=== PATIENT | female | born 2000 | race Caucasian/White ===

== ENCOUNTER 2019-11-14 10:50 | Observation (INO) | payer OTHER ==
[2019-11-14 11:45] LABS: Absolute Neutrophil Ct (ANC) 6.81 (1.4-6.9); BASOPHIL % 0.2 % (0.0-0.4); Basophil (Absolute #) 0.02 (0-0.4); Lymphocyte (Absolute #) 2.04 (1.0-4.6); Lymphocytes % 20.2 % (24.0-44.0); Mean Cell Volume 90.6 fl (78-100); Mean Corpuscular Hemoglobin 29.2 pg (26-32); Mean Corpuscular Hgb Concent. 32.3 g/dl (32-36); Mean Platelet Volume 10.6 fl (7.5-11.0); Monocyte (Absolute #) 1.02 (0.0-1.3); Monocytes % 10.1 % (0.0-12.0); Neutrophil % 67.5 % (36.0-66.0); Platelet Count 185 K/mm3 (150-450); Red Blood Count 3.42 M/mm3 (4.1-5.4); Red Cell Distribution Width 12.7 % (11.5-14.0); White Blood Count 10.1 K/mm3 (4.0-10.5)
[2019-11-14 11:57] LABS: ALBUMIN 3.2 g/dL (3.5-5.0); ALKALINE PHOSPHATASE 114 U/L (38-126); ANION GAP 10.3 MEQ/L (5-15); BLOOD UREA NITROGEN 6 mg/dL (7-17); CHLORIDE 106 mmol/L (98-107); Calcium 8.9 mg/dL (8.4-10.2); Carbon Dioxide 24 mmol/L (22-30); Creatinine 1 0.55 mg/dL (0.52-1.04); Glucose 87 mg/dL (74-106); SGOT/AST 38 U/L (14-36); SGPT/ALT 13 U/L (0-35); SODIUM 137 mmol/L (137-145); Total Protein 6.4 g/dL (6.3-8.2); Uric Acid 4.3 mg/dL (2.6-6.0)
[2019-11-14 12:27] VITALS: BP 100/55; PULSE 91
[2019-11-14 13:08] LABS: Amphetamine,Urine NEGATIVE (NEGATIVE); Barbiturate,Urine NEGATIVE (NEGATIVE); Benzodiazepine,Urine NEGATIVE (NEGATIVE); Cocaine,Urine NEGATIVE (NEGATIVE); Methadone,Urine NEGATIVE (NEGATIVE); Opiate,Urine NEGATIVE (NEGATIVE); PCP,Urine NEGATIVE (NEGATIVE); THC,Urine NEGATIVE (NEGATIVE)
[2019-11-14 13:23] LABS: Appearance CLOUDY (CLEAR); Bilirubin NEGATIVE (NEGATIVE); Blood NEGATIVE Ery/ul (0-5); Epithelial Cells RARE /HPF (FEW); Glucose NEGATIVE (NEGATIVE); Ketones NEGATIVE (NEGATIVE); Leukocyte Esterase NEGATIVE (NEGATIVE); Mucus SLIGHT /HPF (NEGATIVE); Nitrite NEGATIVE (NEGATIVE); Protein,Urine Dip NEGATIVE (Negative); Specific Gravity 1.014 (1.005-1.025); Urobilinogen NEGATIVE mg/dL (0-1)
--- NOTE | 2019-11-14 14:04 | XRAY ---
Indication: Size less than dates. Two-dimensional OB ultrasound performed. Comparison: None There is a single viable intrauterine currently in cephalic presentation. Normal four-chamber heart with heart rate 130 bpm. Normal three-vessel cord and cord insertion. Visualized head, spine, stomach, kidneys, and bladder are unremarkable. Anterior placenta without abruption/previa. BPD measures 8.28 cm corresponding to 33 weeks 2 days. HC measures 31.00 cm corresponding to 34 weeks 4 days. AC measures 28.83 cm corresponding to 32 weeks 6 days. FL measures 6.53 cm corresponding to 33 weeks 5 days. Estimated weight 4 lbs. 12 oz., +/-11 ounces. Approximately 34 percentile. JOSEPH is 12.8 cm. Impression: Single viable intrauterine with mean gestational age 33 weeks 4 days. Expected date confinement is December 29, 2019. No acute findings.
== END 2019-11-14 13:55 | disposition home or self-care (01) ==
LOC: OB 10:50
PROVIDERS: ADMIT Family Medicine; ATTEND Family Medicine
DX: Z34.83 Encounter for supervision of other normal pregnancy, third trimester (principal)
CPT/HCPCS: 36415; 76805; 80053; 80307; 81001; 84550; 85025; 86701; 86702; 87340; 87389; G0378

== ENCOUNTER 2019-12-02 15:01 | Observation (INO) | payer OTHER ==
[2019-12-02 15:27] LABS: Appearance SLIGHTLY CLOUDY (CLEAR); Bilirubin NEGATIVE (NEGATIVE); Blood NEGATIVE Ery/ul (0-5); Epithelial Cells RARE /HPF (FEW); Glucose NEGATIVE (NEGATIVE); Ketones NEGATIVE (NEGATIVE); Leukocyte Esterase NEGATIVE (NEGATIVE); Mucus SLIGHT /HPF (NEGATIVE); Nitrite NEGATIVE (NEGATIVE); Protein,Urine Dip NEGATIVE (Negative); Specific Gravity 1.017 (1.005-1.025); Urobilinogen NEGATIVE mg/dL (0-1)
[2019-12-02 16:06] LABS: Amphetamine,Urine NEGATIVE (NEGATIVE); Barbiturate,Urine NEGATIVE (NEGATIVE); Benzodiazepine,Urine NEGATIVE (NEGATIVE); Cocaine,Urine NEGATIVE (NEGATIVE); Methadone,Urine NEGATIVE (NEGATIVE); Opiate,Urine NEGATIVE (NEGATIVE); PCP,Urine NEGATIVE (NEGATIVE); THC,Urine NEGATIVE (NEGATIVE)
[2019-12-02] MEDS ORDERED: Lactated Ringers 1,000 ML IV SCH (17:00)
[2019-12-02 19:06] VITALS: BP 110/60; PULSE 89
== END 2019-12-02 19:04 | disposition home or self-care (01) ==
LOC: OB 15:01
PROVIDERS: ADMIT Family Medicine; ATTEND Family Medicine
DX: Z34.83 Encounter for supervision of other normal pregnancy, third trimester (principal)
CPT/HCPCS: 80307; 81001; G0378

== ENCOUNTER 2019-12-09 13:09 | Inpatient (IN) | payer OTHER ==
[2019-12-09 13:56] LABS: Appearance CLOUDY (CLEAR); Bilirubin NEGATIVE (NEGATIVE); Blood NEGATIVE Ery/ul (0-5); Epithelial Cells MODERATE /HPF (FEW); Glucose NEGATIVE (NEGATIVE); Ketones NEGATIVE (NEGATIVE); Leukocyte Esterase MODERATE (NEGATIVE); Mucus SLIGHT /HPF (NEGATIVE); Nitrite NEGATIVE (NEGATIVE); Protein,Urine Dip NEGATIVE (Negative); RBC 0-2 /HPF (0-2); Specific Gravity 1.015 (1.005-1.025); Urobilinogen NEGATIVE mg/dL (0-1)
[2019-12-09] MEDS ORDERED: Lactated Ringers 1,000 ML IV ONE (14:22)
[2019-12-09 14:53] LABS: Amphetamine,Urine NEGATIVE (NEGATIVE); Barbiturate,Urine NEGATIVE (NEGATIVE); Benzodiazepine,Urine NEGATIVE (NEGATIVE); Cocaine,Urine NEGATIVE (NEGATIVE); Methadone,Urine NEGATIVE (NEGATIVE); Opiate,Urine NEGATIVE (NEGATIVE); PCP,Urine NEGATIVE (NEGATIVE); THC,Urine NEGATIVE (NEGATIVE)
[2019-12-09] MEDS ORDERED: SOD CITRATE-CITRIC ACID SOLN PO ONE (16:08)
[2019-12-09] MEDS ORDERED: Reglan 10 MG/2 ML IV SCH (16:15)
[2019-12-09] MEDS ORDERED: Pepcid 20 MG VIAL IV SCH (16:15)
[2019-12-09] MEDS ORDERED: CEFAZOLIN 2 GM-D5W BAG** 2 GM/50 ML ML IV SCH (16:30)
[2019-12-09] MEDS ORDERED: Lactated Ringers 1,000 ML IV SCH (16:30)
[2019-12-09 16:34] LABS: Hemoglobin 9.6 gm/dl (12.0-16.0); INR 1.01 (0.8-3.0); Mean Cell Volume 90.9 fl (78-100); Mean Corpuscular Hemoglobin 29.1 pg (26-32); Mean Platelet Volume 10.6 fl (7.5-11.0); PROTIME 11.4 SECONDS (9.95-12.35); Platelet Count 175 K/mm3 (150-450); Red Cell Distribution Width 13.2 % (11.5-14.0); White Blood Count 13.1 K/mm3 (4.0-10.5)
[2019-12-09 16:37] LABS: PTT 27.7 SECONDS (25.3-37.0)
[2019-12-09] MEDS ORDERED: Pitocin 10 UNITS/ML ONE ×2 (16:47→17:56)
[2019-12-09] MEDS ORDERED: Astramorph-Pf 5 MG/10 ML ONE (16:48)
[2019-12-09 17:01] LABS: BAND 11 % (0.0-2.0); Lymphocytes 18 % (24-44); Metamyelocyte 2 %; Monocyte 4 % (0.0-12.0); Neutrophils 65 % (36.0-66.0); Total Cells Counted 100
[2019-12-09 17:02] LABS: Macrocytosis RARE; Platelet Estimate NORMAL (NORMAL); Polychromasia 1+
[2019-12-09 17:04] LABS: Absolute Neutrophil Ct (ANC) 9.93 (1.4-6.9)
[2019-12-09] MEDS ORDERED: Ephedrine Sulfate 50 MG/ML ONE (17:14)
[2019-12-09 17:22] LABS: ABO TYPING A; RH TYPING NEGATIVE
[2019-12-09 17:23] LABS: Antibody Screen POSITIVE (NEGATIVE)
[2019-12-09] MEDS ORDERED: PHENYLEPHRINE HCL ONE (17:29)
[2019-12-09] MEDS ORDERED: Zofran 4 MG/2 ML VIAL ONE (17:30)
[2019-12-09] MEDS ORDERED: MARCAINE 0.5%-EPI 1:200,000 VL IJ ONE (17:37)
[2019-12-09] MEDS ORDERED: Decadron 4 MG INJ ONE (17:39)
[2019-12-09] MEDS ORDERED: Lactated Ringers 2,000 ML IV ONE (18:08)
[2019-12-09] MEDS ORDERED: DEMEROL 50 MG ONE (18:16)
[2019-12-09 19:39] LABS: Appearance CLEAR (CLEAR); Bilirubin NEGATIVE (NEGATIVE); Blood MODERATE Ery/ul (0-5); Glucose NEGATIVE (NEGATIVE); Ketones SMALL (NEGATIVE); Leukocyte Esterase NEGATIVE (NEGATIVE); Nitrite NEGATIVE (NEGATIVE); Protein,Urine Dip NEGATIVE (Negative); RBC 0-2 /HPF (0-2); Specific Gravity 1.008 (1.005-1.025); Urobilinogen NEGATIVE mg/dL (0-1); WBC 0-2 /HPF (0-5)
[2019-12-09] MEDS ORDERED: MOTRIN 400 MG PO PRN (20:39)
[2019-12-09] MEDS ORDERED: CORTISONE 1% CREAM TP PRN (20:39)
[2019-12-09] MEDS ORDERED: LANSINOH 40 GM TOP PRN (20:39)
[2019-12-09] MEDS ORDERED: TYLENOL EXTRA STRENGTH 500 MG PO PRN (20:39)
[2019-12-09] MEDS ORDERED: Ambien 10 MG PO PRN (20:39)
[2019-12-09] MEDS ORDERED: Rhogam Plus 300 MCG IM ONE (20:39)
[2019-12-09] MEDS ORDERED: Mylicon 80MG PO PRN (20:39)
[2019-12-09] MEDS ORDERED: Narcan 0.4 MG/ML IV PRN (20:41)
[2019-12-09] MEDS ORDERED: CLARITIN 10 MG PO PRN (20:41)
[2019-12-09] MEDS ORDERED: BENADRYL 50 MG/ML IV PRN (20:41)
[2019-12-09] MEDS ORDERED: HOLD NARCOTIC ANALGESICS AND SEDATIVES X24 HR MC PRN (20:41)
[2019-12-09] MEDS ORDERED: Nubain 10 MG/ML IV PRN (20:41)
[2019-12-09] MEDS ORDERED: Zofran 4 MG/2 ML VIAL IV PRN (20:41)
[2019-12-09] MEDS ORDERED: DEMEROL 50 MG IV PRN (20:43)
[2019-12-09] MEDS ORDERED: Phenergan 25 MG INJ IM PRN (20:43)
[2019-12-09] MEDS: Colace 100 MG PO SCH (22:00)
[2019-12-10] MEDS: Dextrose 5%-Lr IV Solution 1000 ML 1,000 ML IV SCH ×2 (02:04→10:08)
[2019-12-10 04:58] LABS: Absolute Neutrophil Ct (ANC) 17.23 (1.4-6.9); BASOPHIL % 0.1 % (0.0-0.4); Basophil (Absolute #) 0.01 (0-0.4); Eosinophil (Absolute #) 0 (0-0.5); Hematocrit 27.3 % (35-47); Lymphocytes % 4.3 % (24.0-44.0); Mean Cell Volume 89.5 fl (78-100); Mean Corpuscular Hemoglobin 29.5 pg (26-32); Mean Platelet Volume 10.9 fl (7.5-11.0); Monocyte (Absolute #) 0.57 (0.0-1.3); Monocytes % 3.1 % (0.0-12.0); Neutrophil % 92.5 % (36.0-66.0); Platelet Count 196 K/mm3 (150-450); Red Blood Count 3.05 M/mm3 (4.1-5.4); Red Cell Distribution Width 12.7 % (11.5-14.0); White Blood Count 18.6 K/mm3 (4.0-10.5)
[2019-12-10 08:51] VITALS: O2SAT 99
--- NOTE | 2019-12-10 09:21 | PCM.DS ---
Discharge Summary Date of Admission: 12/09/19 16:09 Admitting Physician: ELIAS VAZQUEZ Consults: Consults on Case 12/09/19 16:08 Notify Physician OF ADMISSION 12/09/19 20:39 Notify Physician ROUTINE 12/09/19 20:41 Notify Anesthesia Provider PRN Primary Care Provider: ELIAS VAZQUEZ Allergies Allergies No Known Drug Allergies Allergy (Verified 12/09/19 13:25) Hospital Summary - Hospital Course Hospital Course: patient is a 19yo with 2 prior , under the care of Dr Lo and recently switched to Dr Vazquez. arrived at 37 1/7wks ega in active labor, had repeat c/s on 12/08 with no complications. she is tolerating po, pain controlled post-op. baby was transferred to NICU due to respiratory concerns. she plans to breastfeed and has been pumping since delivery - Vitals & Intake/Output Vital Signs: Vital Signs Temperature 97.8 F 12/10/19 08:15 Pulse Rate 86 12/10/19 08:15 Respiratory Rate 18 12/10/19 08:15 Blood Pressure 96/53 12/10/19 08:15 O2 Sat by Pulse Oximetry 99 12/10/19 08:15 Intake & Output: Intake & Output 12/07/19 12/08/19 12/09/19 12/10/19 11:59 11:59 11:59 11:59 Intake Total 2413 Output Total 950 Balance 1463 Weight 70.76 kg - Lab Result Diagrams: 12/10/19 04:55 Lab Results-Last 24 Hrs: Lab Results-Last 24 Hours 12/09/19 12/09/19 12/09/19 Range/Units 13:15 13:15 13:30 WBC (4.0-10.5) K/mm3 RBC (4.1-5.4) M/mm3 Hgb (12.0-16.0) gm/dl Hct (35-47) % MCV (78-100) fl MCH (26-32) pg MCHC (32-36) g/dl RDW (11.5-14.0) % Plt Count (150-450) K/mm3 MPV (7.5-11.0) fl Gran % (36.0-66.0) % Eos # (Auto) (0-0.5) Absolute Lymphs (auto) (1.0-4.6) Absolute Monos (auto) (0.0-1.3) Lymphocytes % (24.0-44.0) % Monocytes % (0.0-12.0) % Eosinophils % (0.00-5.0) % Basophils % (0.0-0.4) % Absolute Granulocytes (1.4-6.9) Segmented Neutrophils (36.0-66.0) % Band Neutrophils (0.0-2.0) % Lymphocytes (Manual) (24-44) % Monocytes (Manual) (0.0-12.0) % Basophils # (0-0.4) Metamyelocytes % Platelet Estimate (NORMAL) RBC Morphology Polychromasia Macrocytosis PT (9.95-12.35) SECONDS INR (0.8-3.0) APTT (25.3-37.0) SECONDS Urine Color YELLOW (YELLOW) Urine Appearance CLOUDY (CLEAR) Urine pH 7.0 (5-6) Ur Specific Lingle 1.015 (1.005-1.025) Urine Protein NEGATIVE (Negative) Urine Ketones NEGATIVE (NEGATIVE) Urine Blood NEGATIVE (0-5) Jeremías/ul Urine Nitrite NEGATIVE (NEGATIVE) Urine Bilirubin NEGATIVE (NEGATIVE) Urine Urobilinogen NEGATIVE (0-1) mg/dL Ur Leukocyte Esterase MODERATE (NEGATIVE) Urine WBC (Auto) 3-5 (0-5) /HPF Urine RBC (Auto) 0-2 (0-2) /HPF U Epithel Cells (Auto) MODERATE (FEW) /HPF Urine Bacteria (Auto) NONE (NEGATIVE) /HPF Urine Mucus (Auto) SLIGHT (NEGATIVE) /HPF Urine Culture Reflexed NO (NO) Urine Glucose NEGATIVE (NEGATIVE) mg/dL POC Amnio Swab Test Negative Urine Opiates Level NEGATIVE (NEGATIVE) Ur Methadone NEGATIVE (NEGATIVE) Urine Barbiturates NEGATIVE (NEGATIVE) Ur Phencyclidine (PCP) NEGATIVE (NEGATIVE) Urine Amphetamine NEGATIVE (NEGATIVE) U Benzodiazepine Level NEGATIVE (NEGATIVE) Urine Cocaine NEGATIVE (NEGATIVE) Urine Marijuana (THC) NEGATIVE (NEGATIVE) ABO Group Rh Factor Antibody Screen (NEGATIVE) 12/09/19 12/09/19 12/09/19 Range/Units 16:20 16:20 16:20 WBC 13.1 H (4.0-10.5) K/mm3 RBC 3.30 L (4.1-5.4) M/mm3 Hgb 9.6 L (12.0-16.0) gm/dl Hct 30.0 L (35-47) % MCV 90.9 (78-100) fl MCH 29.1 (26-32) pg MCHC 32.0 (32-36) g/dl RDW 13.2 (11.5-14.0) % Plt Count 175 (150-450) K/mm3 MPV 10.6 (7.5-11.0) fl Gran % (36.0-66.0) % Eos # (Auto) (0-0.5) Absolute Lymphs (auto) (1.0-4.6) Absolute Monos (auto) (0.0-1.3) Lymphocytes % (24.0-44.0) % Monocytes % (0.0-12.0) % Eosinophils % (0.00-5.0) % Basophils % (0.0-0.4) % Absolute Granulocytes 9.93 H (1.4-6.9) Segmented Neutrophils 65 (36.0-66.0) % Band Neutrophils 11 H (0.0-2.0) % Lymphocytes (Manual) 18 L (24-44) % Monocytes (Manual) 4 (0.0-12.0) % Basophils # (0-0.4) Metamyelocytes 2 % Platelet Estimate NORMAL (NORMAL) RBC Morphology ABNORMAL Polychromasia 1+ Macrocytosis RARE PT 11.4 (9.95-12.35) SECONDS INR 1.01 (0.8-3.0) APTT 27.7 (25.3-37.0) SECONDS Urine Color (YELLOW) Urine Appearance (CLEAR) Urine pH (5-6) Ur Specific Lingle (1.005-1.025) Urine Protein (Negative) Urine Ketones (NEGATIVE) Urine Blood (0-5) Jeremías/ul Urine Nitrite (NEGATIVE) Urine Bilirubin (NEGATIVE) Urine Urobilinogen (0-1) mg/dL Ur Leukocyte Esterase (NEGATIVE) Urine WBC (Auto) (0-5) /HPF Urine RBC (Auto) (0-2) /HPF U Epithel Cells (Auto) (FEW) /HPF Urine Bacteria (Auto) (NEGATIVE) /HPF Urine Mucus (Auto) (NEGATIVE) /HPF Urine Culture Reflexed (NO) Urine Glucose (NEGATIVE) mg/dL POC Amnio Swab Test Urine Opiates Level (NEGATIVE) Ur Methadone (NEGATIVE) Urine Barbiturates (NEGATIVE) Ur Phencyclidine (PCP) (NEGATIVE) Urine Amphetamine (NEGATIVE) U Benzodiazepine Level (NEGATIVE) Urine Cocaine (NEGATIVE) Urine Marijuana (THC) (NEGATIVE) ABO Group A Rh Factor NEGATIVE Antibody Screen POSITIVE (NEGATIVE) 12/09/19 12/10/19 Range/Units 17:11 04:55 WBC 18.6 H (4.0-10.5) K/mm3 RBC 3.05 L (4.1-5.4) M/mm3 Hgb 9.0 L (12.0-16.0) gm/dl Hct 27.3 L (35-47) % MCV 89.5 (78-100) fl MCH 29.5 (26-32) pg MCHC 33.0 (32-36) g/dl RDW 12.7 (11.5-14.0) % Plt Count 196 (150-450) K/mm3 MPV 10.9 (7.5-11.0) fl Gran % 92.5 H (36.0-66.0) % Eos # (Auto) 0 (0-0.5) Absolute Lymphs (auto) 0.80 L (1.0-4.6) Absolute Monos (auto) 0.57 (0.0-1.3) Lymphocytes % 4.3 L (24.0-44.0) % Monocytes % 3.1 (0.0-12.0) % Eosinophils % 0.0 (0.00-5.0) % Basophils % 0.1 (0.0-0.4) % Absolute Granulocytes 17.23 H (1.4-6.9) Segmented Neutrophils (36.0-66.0) % Band Neutrophils (0.0-2.0) % Lymphocytes (Manual) (24-44) % Monocytes (Manual) (0.0-12.0) % Basophils # 0.01 (0-0.4) Metamyelocytes % Platelet Estimate (NORMAL) RBC Morphology Polychromasia Macrocytosis PT (9.95-12.35) SECONDS INR (0.8-3.0) APTT (25.3-37.0) SECONDS Urine Color YELLOW (YELLOW) Urine Appearance CLEAR (CLEAR) Urine pH 6.0 (5-6) Ur Specific Lingle 1.008 (1.005-1.025) Urine Protein NEGATIVE (Negative) Urine Ketones SMALL (NEGATIVE) Urine Blood MODERATE (0-5) Jeremías/ul Urine Nitrite NEGATIVE (NEGATIVE) Urine Bilirubin NEGATIVE (NEGATIVE) Urine Urobilinogen NEGATIVE (0-1) mg/dL Ur Leukocyte Esterase NEGATIVE (NEGATIVE) Urine WBC (Auto) 0-2 (0-5) /HPF Urine RBC (Auto) 0-2 (0-2) /HPF U Epithel Cells (Auto) NONE (FEW) /HPF Urine Bacteria (Auto) NONE (NEGATIVE) /HPF Urine Mucus (Auto) (NEGATIVE) /HPF Urine Culture Reflexed (NO) Urine Glucose NEGATIVE (NEGATIVE) mg/dL POC Amnio Swab Test Urine Opiates Level (NEGATIVE) Ur Methadone (NEGATIVE) Urine Barbiturates (NEGATIVE) Ur Phencyclidine (PCP) (NEGATIVE) Urine Amphetamine (NEGATIVE) U Benzodiazepine Level (NEGATIVE) Urine Cocaine (NEGATIVE) Urine Marijuana (THC) (NEGATIVE) ABO Group Rh Factor Antibody Screen (NEGATIVE) - Procedures and Test Procedures and Tests throughout Hospitalization: Therapy Orders & Screens 12/09/19 19:39 Standby Routine Comment: Diagnosis: TIUP Discharge Exam General Appearance: no apparent distress, alert Respiratory Exam: normal breath sounds, lungs clear, No respiratory distress Cardiovascular Exam: regular rate/rhythm, normal heart sounds Gastrointestinal/Abdomen Exam: soft, other (scant drainage present from incision. appears intact, no surrounding erythema. fundus firm), No tenderness, No mass Extremity Exam: normal inspection, normal range of motion Final Diagnosis/Problem List - Final Discharge Diagnosis/Problem (1) Status post repeat low transverse section Current Visit: Yes Status: Acute Code(s): Z98.891 - HISTORY OF UTERINE SCAR FROM PREVIOUS SURGERY (2) Iron deficiency anemia of Current Visit: Yes Status: Acute Code(s): O99.019 - ANEMIA COMPLICATING , UNSPECIFIED TRIMESTER; D50.9 - IRON DEFICIENCY ANEMIA, UNSPECIFIED - Discharge Disposition: Home, Self-Care Condition: Good Prescriptions: New Docusate Sodium 100 mg [Colace 100 MG] 100 mg PO BID #60 cap Iron Polysaccharides Complex [Ferrex 150] 150 mg PO DAILY #30 capsule Hydrocodone/APAP 5-325 Tab^^^ [[place] 5-325 Tablet^^^] 1 tab PO Q6HPRN PRN # 28 tablet MDD 6 PRN Reason: Pain Continue Multivitamin [Multi-Vitamin Daily] 1 each PO DAILY Follow up with: ELIAS VAZQUEZ [Primary Care Provider] - 1 Week
[2019-12-10] MEDS: PERCOCET TABLET 5/325MG PO PRN ×2 (09:57→17:35)
[2019-12-10] MEDS: Colace 100 MG PO SCH (09:57)
[2019-12-10] MEDS ORDERED: FERREX 150 PO SCH (10:00)
[2019-12-10 12:31] VITALS: BP 95/63; PULSE 78
--- NOTE | 2019-12-12 09:05 | OP ---
SURGERY DATE: 12/09/2019 SURGERY TIME: 1655 PREOPERATIVE DIAGNOSES: 1. HISTORY OF PRIOR SECTION. 2. TERM INTRAUTERINE IN ACTIVE LABOR. POSTOPERATIVE DIAGNOSES: 1. HISTORY OF PRIOR SECTION. 2. TERM INTRAUTERINE IN ACTIVE LABOR. PROCEDURE: 1. Repeat low transverse section. SURGEON: Robert Corea M.D. ANESTHESIA: Spinal by Ronald Del Rosario CRNA. ESTIMATED BLOOD LOSS: 400 ml. URINE: 50 ml of clear, straw-colored urine. IV FLUIDS: 2 liters of crystalloid. SPECIMEN: None. DESCRIPTION OF PROCEDURE: After informed written consent was obtained, the patient was taken to the OR. She underwent spinal anesthesia, a Miller catheter was inserted, and she was prepped and draped in the usual sterile fashion. After adequate level of anesthesia was confirmed, low transverse skin incision was made by knife through the area of prior . Incision was carried down to the level of the fascia which was nicked on both sides of the midline extending horizontal using curved Zabala scissors. The superior free edge of the fascia was grasped with J Carlos clamps and the underlying rectus muscles were dissected free. The same was repeated inferiorly with curved Zabala scissors. The peritoneal cavity was opened bluntly extending horizontal and then a bladder flap was created and reflected over the lower uterine segment. A horizontal uterine incision was then made down to the level of the amniotic membranes which were carefully artificially ruptured revealing clear fluid. Viable male was delivered from the vertex presentation. Cord was clamped and cut and then Dr. George castellano scrub at that time to attend to the . Placenta was manually extracted. The uterus was exteriorized. The uterine cavity was sponge curetted clean with a Lap sponge. Then, the uterine incision was closed with #1 chromic in a running, locked fashion. There was a small area of bleeding in the inferior aspect which was controlled using another #1 chromic figure of 8 on the inferior aspect of the incision. Posterior cul-de-sac was wiped free of blood and clot with a moist Lap sponge and the uterus was returned to the peritoneal cavity. Lateral gutters were wiped free of blood and clot. The incision was inspected and noted have good closure and good hemostasis. Next, the fascia was closed with 0 Vicryl in a running fashion. Good closure and good hemostasis were achieved at this level. Subcutaneous fat was then irrigated with warm, sterile saline. Any areas of bleeding in the subcutaneous tissue were cauterized with electrocautery. Finally, the skin layer was closed with 4-0, undyed Vicryl in running subcuticular fashion. Steri-Strips and an occlusive dressing were placed over the incision. The patient was transferred to the recovery room in good condition.
== END 2019-12-10 18:35 | disposition home or self-care (01) | DRG 788 ==
LOC: OB 13:09 → OBSVTOIN 16:09
PROVIDERS: ADMIT Family Medicine; ATTEND Family Medicine
PROC: 10D00Z1 Extraction of Products of Conception, Low, Open Approach (ICD-10-PCS; principal; 2019-12-09)
DX: O34.211 Maternal care for low transverse scar from previous cesarean delivery (principal); Z3A.37 37 weeks gestation of pregnancy; Z37.0 Single live birth; O99.02 Anemia complicating childbirth; D50.9 Iron deficiency anemia, unspecified
CPT/HCPCS: 36415; 62322; 64488; 76805; 76937; 76942; 80307; 81001; 84112; 85025; 85610; 85730; 86850; 86870; 86900; 86901; 87086; 94799; G0378; J0690; J1100; J2175; J2274; J2300; J2370; J2405; J2590; L0625; A9270-GY